=== PATIENT | female | born 1975 | race Caucasian/White ===

== ENCOUNTER 2019-09-15 09:28 | Emergency (ER) | payer BC, OTHER ==
--- NOTE | 2019-09-15 10:00 | UC ---
Lower Extremity/Ankle HPI - HPI Summary HPI Summary: 43 yo female presents s/p fall. She tells me that on 09/05 she was at work at [employer] and fell down a flight of stairs (about 10 steps). She tumbled head over heels, did hit her head and mostly the left side of her body. No LOC. Was ambulatory following the incident. Since that time has had bruising to her left lower leg, left upper arm, left wrist, and right leg. She has been resting, elevating, and icing the areas. Her areas of concern today are her left wrist and left lower leg. The left wrist is improving well, but is still mildly bruised. The left lower leg has bruising and swelling to the anterior aspect where she hit it. Pain in the leg has been worsening with ambulation. Denies numbness or tingling. - History of Current Complaint Stated Complaint: WC-SP FALL Time Seen by Provider: 09/15/19 10:00 Hx Obtained From: Patient Hx Last Menstrual Period: 07/30/12 Onset/Duration: Sudden Onset Severity Initially: Moderate Severity Currently: Moderate Pain Intensity: 6 Pain Scale Used: 0-10 Numeric Aggravating Factor(s): Standing, Ambulation Alleviating Factor(s): Rest, Elevation, Ice Able to Bear Weight: Yes Related History: Occupational Injury - Allergies/Home Medications Allergies/Adverse Reactions: Allergies Allergy/AdvReac Type Severity Reaction Status Date / Time Sulfa (Sulfonamide Allergy Nausea And Verified 09/15/19 10:16 Antibiotics) Vomiting Home Medications: Home Medications Multivitamin [Multivitamins] 1 cap PO DAILY 08/01/12 [History Confirmed 09/15/19 ] Cholecalciferol (Vitamin D3) [Vitamin D3] 5,000 unit PO 09/15/19 [History] Loratadine [Claritin 10 MG CAP] 10 mg PO DAILY 09/15/19 [History Confirmed 09/14] Naproxen [Naproxen 500 mg tab] 500 mg PO BID PRN #30 tablet 09/15/19 [Rx] PMH/Surg Hx/FS Hx/Imm Hx - Additional Past Medical History Additional PMH: None - Surgical History Surgical History: Yes Surgery Procedure, Year, and Place: skin cyst - Family History Known Family History: Positive: None - Social History Occupation: Employed Full-time Lives: With Family Alcohol Use: Occasionally Substance Use Type: None Smoking Status (MU): Never Smoked Tobacco - Immunization History Most Recent Tetanus Shot: 2009 Review of Systems All Other Systems Reviewed And Are Negative: No Constitutional: Positive: Negative Skin: Positive: Bruising Respiratory: Positive: Negative Cardiovascular: Positive: Negative Gastrointestinal: Positive: Negative Genitourinary: Positive: Negative Neurovascular: Positive: Negative Musculoskeletal: Positive: Other: - Left leg pain. Left wrist pain. Neurological/Mental Status: Positive: Negative Psychological: Positive: Negative Physical Exam - Summary Physical Exam Summary: GENERAL: NAD. WDWN. No pain distress. SKIN: No rashes, sores, lesions, or open wounds. CHEST: No accessory muscle use. Breathing comfortably and in no distress. CV: Pulses intact PT and DP. Cap refill <2seconds MSK: LEFT LOWER LEG: Anterior aspect with yellow ecchymosis ~20.0cm oval shaped with two areas of firm edema likely hematoma. No open wounds. NTTP ankle with FROM. NTTP knee with FROM. Negative Snow Shoe test. Negative franck sign. Posterior calf soft and nttp without edema. LEFT WRIST: Mild ttp at base of thumb. Strength 5/5 including fur farmer strength. No edema or obvious bony deformities. No snuffbox tenderness. NEURO: Alert. Sensations intact and symmetric B/L LEs PSYCH: Age appropriate behavior. Triage Information Reviewed: Yes Vital Signs: Vital Signs: Temp Pulse Resp BP Pulse Ox 97.2 F 77 16 104/76 100 09/15/19 10:10 09/15/19 10:10 09/15/19 10:10 09/15/19 10:10 09/15/19 10:10 Vital Signs Reviewed: Yes Diagnostics - Radiology Left leg XR Radiology Interpretation Completed By: Radiologist Summary of Radiographic Findings: IMPRESSION: Normal left lower leg radiograph. Left wrist XR Radiology Interpretation Completed By: Radiologist Summary of Radiographic Findings: IMPRESSION: Normal radiograph of the left wrist. Lower Extremity Course/Dx - Course Course Of Treatment: XRs as above. Suspect contusions/hematomas. Advised to continue rest, ice, and elevation. Rx for naproxen for discomfort. F/ u with PCP if symptoms do not improve. - Differential Dx/Diagnosis Provider Diagnosis: Fall, Hematoma, Left wrist pain, Left leg pain Discharge ED - Sign-Out/Discharge Documenting (check all that apply): Patient Departure All imaging exams completed and their final reports reviewed: Yes - Discharge Plan Condition: Stable Disposition: HOME Prescriptions: Naproxen [Naproxen 500 mg tab] 500 mg PO BID PRN #30 tablet PRN Reason: Pain - Moderate Patient Education Materials: Contusion in Adults (ED), Hematoma (ED) Referrals: Marry Oneill MD [Primary Care Provider] - Additional Instructions: If you develop a fever, shortness of breath, chest pain, new or worsening symptoms - please call your PCP or go to the ED immediately. The X-rays of your wrist and leg were normal today with no sign of broken bones/ fractures. I recommend that you rest, ice, and elevate your leg intermittently throughout the day to reduce pain and swelling. -- The areas of hematoma may take a few weeks to resolve. If you develop pain, swelling, or redness in the back of your leg/calf -- please be rechecked immediately. - Billing Disposition and Condition Condition: STABLE Disposition: Home
--- OUTSIDE RECORDS SUMMARY | 2019-09-15 10:01 | XMS REPORT | Continuity of Care Document ---
:1975 External Reference #:[id number] Author Name Marry Oneill MD Address [address] [place] [id number] Care Team Providers Name Role Phone Tao Alvarez DR - Rheumatology Care Team Information Sort Line [phone] Kulwinder Doty MD - Surgery Care Team Information Sort Line Problems Description No Information Available Social History Type Date Description Comments Sex Unknown ETOH Use Rarely consumes alcohol Tobacco Use Start: Unknown Patient has never smoked Smoking Status Reviewed: 08/02/19 Patient has never smoked Allergies, Adverse Reactions, Alerts Active Allergies Reaction Severity Comments Date Clarithromycin 02/06/2017 Sulfa Drugs 07/28/2017 Inactive Allergies NKDA 02/06/2017 Medications Active Medications SIG Qnty Indications Ordering Provider Date Multi Complete 1 by mouth every Marry Oneill MD 07/17/2014 Capsules day Claritin 1 by mouth every Unknown 10mg Capsules day Vitamin D 1 by mouth every Unknown 5000Unit day Tablets History Medications Benzonatate 1 by mouth every 8 60caps R05 Digiovanna, 04/08/2019 - 200mg hours as needed MEAGHAN Clifton 08/01/2019 Capsules for cough, may cause drowsiness Prednisone One tab daily by 7tabs J20.9 Marry Oneill MD 04/04/2019 - 10mg mouth 04/11/2019 Tablets R05 Nitrofurantoin Monohyd 1 tab by mouth 14caps N30.91 Marry Oneill, 2018 - Macro twice a day 04/11/2019 100mg Capsules Immunizations CPT Code Status Date Vaccine Reaction Lot # [id number] Given 05/09/2019 Influenza Vaccine Quadrivalent Preser/Antib[place] [address] Given 06/14/2018 Influenza Vac, Quadrivalent, Split, 0.5mL Dosage, Im Use [id number] Given 05/20/2017 Influenza, Preservative Free 3 Years And Older Q2037 Given 05/29/2015 Fluvirin Immunization [facility] 02624 Given 06/17/2010 Tdap (Adacel) Ages 7 And Above Only Vital Signs Date Vital Result Comment 08/02/2019 10:41am Weight 208.00 lb Heart Rate 88 /min BP Systolic 124 mmHg BP Diastolic 72 mmHg Respiratory Rate 18 /min Height 67 inches 5'7" O2 % BldC Oximetry 98 % Ra BMI (Body Mass Index) 32.6 kg/m2 04/08/2019 10:47am Body Temperature 99.5 F tympanic Weight 207.44 lb Heart Rate 78 /min BP Systolic 128 mmHg BP Diastolic 76 mmHg Respiratory Rate 18 /min Height 67 inches 5'7" O2 % BldC Oximetry 98 % Room Air BMI (Body Mass Index) 32.5 kg/m2 Results Test Acquired Date Facility Test Result H/L Range Note Laboratory test 08/02/2019 [facility] Pap Smear Thin <pending> finding Prep-RL Basic (BMP) 07/25/2019 [facility] Sodium 139 mmol/L 135-146 1, 2 Potassium 4.0 mmol/L 3.5-5.2 Chloride# 105 mmol/L 97-110 3 Carbon Dioxide 26 mmol/L 24-34 Glucose 86 mg/dL 70-105 BUN 20 mg/dL 6-26 Creatinine 0.8 mg/dL 0.5-1.4 Calcium 9.0 mg/dL 8.5-10.5 4 Female Egfr 90 >60 5 Male Egfr 109 >60 6 Anion Gap 8 mmol/L 5-15 7 CBC With Auto Diff 07/25/2019 [facility] WBC 7.8 K/uL 4.1-11.0 8 RBC 4.59 M/uL 4.00-5.40 9 Hemoglobin 14.7 gm/dL 12.0-16.0 10 Hematocrit 43.0 % 36.0-47.0 11 MCV 93.6 fL 80.0-95.0 12 MCH 32.1 pg High 27.0-32.0 13 MCHC 34.3 g/dL 32.0-36.0 14 RDW 13.3 % 10.5-14.5 15 PLT Count 299 K/ul 150-400 16 MPV 9.3 FL 7.1-10.7 Neutrophil 67.6 % 35.0-75.0 17 Lymphocyte 23.2 % 16.0-52.0 18 Monocyte 8.1 % High 0.0-8.0 19 Eosinophil 0.9 % 0.0-5.0 Basophil 0.2 % 0.0-4.0 Abs Neutrophils 5.2 K/uL 1.8-7.7 20 Abs Lymphocytes 1.8 K/uL 1.2-4.8 21 Abs Monocytes 0.6 K/uL 0.0-0.8 22 Abs Eosinophils 0.1 K/uL 0.0-0.5 23 Abs Basophils 0.0 K/uL 0.0-0.2 24 Laboratory test finding 07/25/2019 [facility] TSH 1.35 uIU/mL 0.35-4.94 Lipid 07/25/2019 [facility] Cholesterol 163 mg/dL 50-199 Triglycerides 193 mg/dL 30-200 HDL 61 mg/dL 35-85 25 Chol/ HDL Ratio 2.7 ratio Low 3.7-5.6 VLDL 39 mg/dL High 2-29 LDL (Calc) 64 mg/dL 20-99 26 Laboratory test 07/25/2019 [facility] Vitamin D 25 48 ng/mL 30-100 27 finding Hydroxy Laboratory test 04/08/2019 [facility] Throat Culture Microbiology res 28 finding <SEE NOTE> Rout Urine W/ Micro 04/04/2019 [facility] Color YELLOW -RL Appearance TURBID Spec Grav Urine 1.019 (1.003-1.030) PH Urine 7.5 (5.0-7.5) Leuk Esterase 2+ Abnormal (Neg) Nitrite Urine NEGATIVE (Neg) Protein Urine NEGATIVE (Neg) Glucose Urine NEGATIVE (Neg) Ketone Urine NEGATIVE (Neg) Urobilinogen 1.0 mg/dL (0-1.0) Bilirubin Urine NEGATIVE (Neg) Blood/HGB Urine NEGATIVE (Neg) Urine WBC NONE SEEN [HPF] (0-5) Urine RBC NONE SEEN [HPF] (0-2) Caox Crystals 4+ [HPF] 29 Laboratory test 04/04/2019 [facility] Urine Culture Microbiology res Abnormal 30 finding <SEE NOTE> 1 1 year 2 Updated reference range on new analyzer 3 Updated reference range on new analyzer 4 Updated reference range 10-31-2018 5 Concerning GFR Guidelines for Americans: Normal function or mild renal disease, if clinically at risk: >/= 60 mL/min Moderately decreased: 30-59 Severely decreased: 15-29 Renal failure: <15 There is reduced accuracy above 60ml/min/1.73 m squared, but the numeric value may be clinically useful in the near 60 range 6 Concerning GFR Guidelines: Normal function or mild renal disease, if clinically at risk: >/= 60 mL/min Moderately decreased: 30-59 Severely decreased: 15-29 Renal failure: <15 There is reduced accuracy above 60ml/min/1.73 m squared, but the numeric value may be clinically useful in the near 60 range Glomerular Filtration Rate (GFR) is estimated based on the CKD-EPI equation, which assumes a steady state for creatinine as recommended by the National Kidney Disease Education Program in conjunction with the National Institutes of Health and the National Kidney Foundation. Clinical conditions in which it may be necessary to measure GFR by using clearance methods include extremes of age and body size, severe malnutrition or obesity, diseases of skeletal muscle, paraplegia or quadriplegia, vegetarian diet, rapidly changing kidney function, and calculation of the dose of potentially toxic drugs that are excreted by the kidneys. 7 Updated Reference Range 8 Updated Reference Range 05/2019 9 Updated Reference Range 05/2019 10 Updated Reference Range 05/2019 11 Updated Reference Range 05/2019 12 Updated Reference Range 05/2019 13 Updated Reference Range 05/2019 14 Updated Reference range 05/2019 15 Updated Reference range 05/2019 16 Updated Reference Range 05/2019 17 Updated Reference Range 05/2019 18 Updated Reference Range 05/2019 19 Updated Reference Range 05/2019 20 Updated Reference Range 05/2019 21 Updated Reference Range 05/2019 22 Updated Reference Range 05/2019 23 Updated Reference Range 05/2019 24 Updated Reference Range 05/2019 25 Per NCEP ATP III Guidelines: Results lower than 40 mg/dL are suggestive of increased risk for coronary artery disease. Results > or = to 60 mg/dL are considered a negative risk factor. 26 Per NCEP ATP III Guidelines: Normal Population <130 Patients with medical conditions: CHD/DM Optimal: <100 Borderline high: 130-159 High: 160-189 Very high: >189 27 Clinical Guidelines for recommended serum 25(OH)Vitamin D Deficient at less than 20 ng/mL Insufficient at 20 to <30 ng/mL Sufficient at 30-100 ng/mL Toxicity at greater than 100 ng/mL 28 Microbiology results RESULT Normal throat hawa.No beta hemolytic streptococci isolated. 29 Unless otherwise specified, testing performed by [facility] [address] [place] [id number] 30 Microbiology results SOURCE Clean Catch Midstream COLONY COUNT 50,000 PRELIMINARY RESULT Gram Negative Kamari. ID & Sensitivity to Follow. 04/05/2019 6:00 PM FINAL RESULT Escherichia coli (Isolate 1) Sensitivity Analysis Isolate 1 --------- AMIKACIN <=16 S AMOXICILLIN/CLAVULANATE <=8/4 S AMPICILLIN <=8 S AMPICILLIN/SULBACTAM <=8/4 S CEFAZOLIN <=2 S CEFEPIME <=8 S CEFOTAXIME <=2 S CEFTRIAXONE <=1 S CEFUROXIME 8 S CIPROFLOXACIN <=1 S ERTAPENEM <=0.5 S GENTAMYCIN <=2 S IMIPENEM <=1 S LEVOFLOXACIN <=2 S NITROFURANTOIN <=32 S PIPERACILLIN/TAZOBACTAM <=16 S TETRACYCLINE <=4 S TOBRAMYCIN <=4 S TRIMETHOPRIM/SULFAMETHOXAZ <=2/38 S S=Sensitive;I=Indeterminate;R=Resistant Procedures Date Code Description Status 04/08/2019 37471 Measure Blood Oxygen Level Single Determination Completed 04/04/2019 33124 Measure Blood Oxygen Level Single Determination Completed 08/03/2016 11639607 Mammogram Completed Medical Devices Description No Information Available Encounters Type Date Location Provider Dx Diagnosis Office Visit 04/08/2019 [facility] Selvin J06.9 Acute upper 10:45a Elodia, BILLET CHECKER respiratory infection, unspecified R05 Cough Office Visit 04/04/2019 10:30a [facility] Laine Renee NP J20.9 Acute bronchitis, unspecified R05 Cough N30.91 Cystitis, unspecified with hematuria J06.9 Acute upper respiratory infection, unspecified R07.9 Chest pain, unspecified Assessments Date Code Description Provider 08/02/2019 E66.9 Obesity, unspecified Marry Oneill MD 08/02/2019 Z01.419 Encounter for gynecological examination Marry Oneill MD (general) (routine) without abnormal findings 08/02/2019 Z13.31 Encounter for screening for depression Marry Oneill MD 08/02/2019 Z12.31 Encounter for screening mammogram for Marry Oneill MD malignant neoplasm of breast 08/02/2019 Z68.32 Body mass index (BMI) 32.0-32.9, adult Marry Oneill MD 07/25/2019 Z00.00 Encounter for general adult medical Marry Oneill MD examination without abnormal findings 07/25/2019 Z00.00 Encntr for general adult medical exam w/o Schedule, Laboratory abnormal findings 07/25/2019 N92.6 Irregular menstruation, unspecified Marry Oneill MD 07/25/2019 N92.6 Irregular menstruation, unspecified Schedule, Laboratory 07/25/2019 N92.6 Irregular menstruation, unspecified [facility] 07/25/2019 Z00.00 Encntr for general adult medical exam w/o [facility] abnormal findings 04/08/2019 J06.9 Acute upper respiratory infection, Digiovanna, Elodia, BILLET CHECKER unspecified 04/08/2019 R05 Cough Digiovanna, Elodia, BILLET CHECKER 04/08/2019 J06.9 Acute upper respiratory infection, [facility] unspecified 04/04/2019 J20.9 Acute bronchitis, unspecified StraPaul browningkie, BILLET CHECKER 04/04/2019 R05 Cough Strauf, Laine, BILLET CHECKER 04/04/2019 N30.91 Cystitis, unspecified with hematuria StraOlinda browninge, BILLET CHECKER 04/04/2019 J06.9 Acute upper respiratory infection, Strauf, Laine, BILLET CHECKER unspecified 04/04/2019 R07.9 Chest pain, unspecified Strauf, Laine, BILLET CHECKER 04/04/2019 N30.91 Cystitis, unspecified with hematuria [facility] Plan of Treatment Future Appointment(s):07/31/2020 7:40 am - Schedule, Laboratory at [facility]2020 10:30 am - Marry Oneill MD at [facility]08/02/2019 - Marry Oneill MDE66.9 Obesity, unspecifiedComments:Counseled about strategies for weight loss and the impact of weight on chronic medical problems.Work on healthy lifestyle, with regular exercise (20 min daily will help) and eat a healthy diet. Formal diet plans work best.Z01.419 Encounter for gynecological examination (general) ( routine) without abnormal findingsComments:Pap with HPV testing done. If normal , will repeat within 1-5 years. We will need an annual physicalwith breast exam. We will call with the results.Follow up:1-year FYE ? Pap smear check fasting labs prior.Z13.31 Encounter for screening for depressionComments: screening for depression is negative - PHQ2 = 0Z12.31 Encounter for screening mammogram for malignant neoplasm of breastNew Xrays:Mammogram Tomosynthesis Screening, Scheduled: 08/15/19Comments:We will schedule her mammogram today.Z68.32 Body mass index (BMI) 32.0-32.9, adultComments:The BMI is the ratio between height and weight. Goal for a person under age 65 is between 18.5 and 25. You are overweight. Work on healthy lifestyle, with regular exercise (20 min daily will help) and eat a healthy diet. Formal diet plans work best. Functional Status Description No Information Available Mental Status Description No Information Available Referrals Description No Information Available
[2019-09-15 10:15] VITALS: BP 104/76
== END 2019-09-15 10:59 | disposition home or self-care (01) ==
LOC: UCCORT 09:28
DX: M79.605 Pain in left leg (principal); M25.532 Pain in left wrist; S80.12XA Contusion of left lower leg, initial encounter; W10.9XXA Fall (on) (from) unspecified stairs and steps, initial encounter; Y93.9 Activity, unspecified; Y92.9 Unspecified place or not applicable; Z88.2 Allergy status to sulfonamides
CPT/HCPCS: 99201; G0463